=== PATIENT | female | born 1965 | race Caucasian/White ===

== ENCOUNTER 2016-06-27 13:25 | Emergency (ER) | payer MEDICAID ==
[~2016-06-27 13:25] MED LIST: AMBIEN CR6.25 MG PO; ATENOLOL50 M1 PO; COLACE100 M1 PO; CYCLOBENZAPRINE10 M1 PO; FETZIMA; FETZIMA20 M1 PO; IBUPROFEN IB200 MG PO; LAMICTAL; LEVOTHYROXINE137 MC1 PO; LORATADINE10 M2 PO; MUCINEX600 M1 PO; NEURONTIN300 M1 PO; NUCYNTA50 M1 PO; OMEPRAZOLE40 M2 PO; OXYCODONE HCL10 M2 PO; OXYCONTIN40 M2 PO; PROVENTIL HFA6.7 G1 INH; ROSUVASTATIN CA20 MG PO; ROXICODONE5 M2 PO; ROZEREM8 M1 PO; SYNTHROID; TOPAMAX100 M2 PO; TYLENOL325 M2 PO; VITAMIN D50000 UNI2 PO; XANAX2 M1 PO; [UNRECOGNIZED DRUG - OTHER]
[2016-06-27 14:34] LABS: BASO % 0.5 % (0-2); EOSINOPHIL ABSOLUTE COUNT 0.1 tho/cmm (0.0-0.7); HCT-HEMATOCRIT 39.1 % (34.0-49.0); IMMATURE GRANULOCYTES ABSOLUTE 0.01 tho/cmm (0-0.03); IMMATURE GRANULOCYTES PERCENT 0.2 % (0-0.3); LYMPH % 25.3 % (20-45); LYMPH ABSOLUTE COUNT 1.5 tho/cmm (0.8-4.5); MCH (MEAN CORPUSCULAR HGB) 28.3 pg (28.0-32.0); MCHC MEAN CORPUSCULAR HGB CONC 33.2 % (32.0-36.0); MEAN PLATELET VOLUME 9.4 cmc (9.4-12.4); MONO % 8.9 % (0-12); MONOCYTE ABSOLUTE COUNT 0.5 tho/cmm (0.0-1.2); NEUTROPHIL ABSOLUTE COUNT 3.9 tho/cmm (1.6-8.0); NEUTROPHIL-AUTOMATED 3.9 tho/cmm (1.6-8.0); NEUTROPHILS % 64.1 % (40-80); PLATELET COUNT 227 tho/cmm (150-450); RED CELL DISTRIBUTION WIDTH 13.7 % (12.4-16.4)
[2016-06-27 14:49] LABS: ALB/GLOB RATIO 0.8 (0.8-2.0); ALBUMIN 3.4 g/dl (3.5-5.0); ALKALINE PHOSPHATASE 85 U/L (33-138); ALT/SGPT 14 U/L (12-78); ANION GAP 13 mmol/L (0-20); AST/SGOT 14 U/L (10-40); BILIRUBIN,TOTAL 0.4 mg/dl (0-1.5); BLOOD UREA NITROGEN 11 mg/dl (6-24); CARBON DIOXIDE-VENOUS 24 mmol/L (22-32); CHLORIDE 112 mmol/l (96-110); CREATININE 0.66 mg/dl (0.50-1.10); GLUCOSE 113 mg/dL (70-110); LIPASE 359 U/L (73-393); POTASSIUM 3.6 mmol/L (3.7-5.1); SODIUM 145 mmol/L (135-145); eGFR VALUE FOR BLACK >90 mL/Min
[2016-06-27] MEDS ORDERED: VITAMIN B-12250 MC2 (14:49)
[2016-06-27 15:11] LABS: URINE BILIRUBIN SMALL (NEG); URINE BLOOD LARGE (NEG); URINE GLUCOSE (UA) NEGATIVE (NEG); URINE KETONE SMALL (NEG); URINE LEUKOCYTE ESTERASE POSITIVE (NEG); URINE NITRITE NEGATIVE (NEG); URINE PROTEIN MODERATE (NEG); URINE SPECIFIC GRAVITY 1.025 (1.003-1.030)
[2016-06-27 15:12] LABS: URINE APPEARANCE HAZY; URINE COLOR DARK YELLOW
[2016-06-27 15:28] LABS: URINE MUCUS 4+
[2016-06-27 15:31] LABS: URINE WBC 0-3 /[HPF] (0-5)
[2016-06-27] MEDS ORDERED: DICYCLOMINE HCL20 M1 PO (17:11)
[2016-06-27] MEDS ORDERED: COMPAZINE10 MG PO (17:11)
== END 2016-06-27 17:26 ==
LOC: EDMED 13:25
PROVIDERS: Emergency Medicine
DX: K52.9 Noninfective gastroenteritis and colitis, unspecified (principal); F17.200 Nicotine dependence, unspecified, uncomplicated; Z90.49 Acquired absence of other specified parts of digestive tract
CPT/HCPCS: J1170; J7030; P9612; Q9967